=== PATIENT | female | born 1965 | race Caucasian/White ===

== ENCOUNTER 2016-12-22 07:53 | Emergency (ER) | payer OTHER ==
[~2016-12-22] VITALS: Ht 165.1 cm; Wt 68.0 kg
[2016-12-22 08:18] VITALS: BP 120/72
== END 2016-12-22 08:34 | disposition home or self-care (01) ==
LOC: ER 07:53
DX: S20.212A Contusion of left front wall of thorax, initial encounter (principal); S20.211A Contusion of right front wall of thorax, initial encounter; V49.9XXA Car occupant (driver) (passenger) injured in unspecified traffic accident, initial encounter; Y93.89 Activity, other specified; Y99.8 Other external cause status; Y92.89 Other specified places as the place of occurrence of the external cause
CPT/HCPCS: 93005